=== PATIENT | female | born 1960 | race Caucasian/White ===

== ENCOUNTER → 2023-06-23 | Outpatient (CLI) | payer MEDICARE | END | disposition home or self-care (01) | LOC: RESCLI 07:48 | PROVIDERS: ATTEND Student in an Organized Health Care Education/Training Program | DX: C50.919 Malignant neoplasm of unspecified site of unspecified female breast (principal); E55.9 Vitamin D deficiency, unspecified; Z79.899 Other long term (current) drug therapy; Z88.8 Allergy status to other drugs, medicaments and biological substances; Z98.890 Other specified postprocedural states ==